=== PATIENT | male | born 1960 | race Caucasian/White ===

== ENCOUNTER → 2018-07-18 | Outpatient (CLI) | payer BC | LOC: RAD 09:19 | DX: M79.644 Pain in right finger(s) (principal) ==

== ENCOUNTER → 2018-10-08 | Outpatient (CLI) | payer BC ==
[~2018-10-08] MED LIST: FLOMAX0.4 MG PO; OMEPRAZOLE40 MG PO; TEGRETOL200 M1 PO
[2018-10-08 10:11] LABS: HEMATOCRIT 45.5 % (42.0-52.0); HEMOGLOBIN 15.6 g/dL (13.5-18.0); MEAN CELL VOLUME 91 fl (78-100); MEAN CORPUSCULAR HEMOGLOBIN 31 pg (27-31); MEAN CORPUSCULAR HGB CONC 34 g/dL (33-37); MEAN PLATELET VOLUME 9.3 fl (7.4-10.4); PLATELET COUNT 108 K/mm3 (130-400); RED BLOOD COUNT 5.02 M/mm3 (4.20-5.60); RED CELL DISTRIBUTION WIDTH 12.1 % (11.5-14.5); WHITE BLOOD COUNT 3.2 K/mm3 (4.8-10.8)
[2018-10-08 10:26] LABS: ALBUMIN 3.9 g/dL (3.5-5.0); POTASSIUM 4.2 mmol/L (3.5-5.1)
[2018-10-08 10:27] LABS: CALCIUM 8.8 mg/dL (8.3-10.5)
[2018-10-08 10:31] LABS: TOTAL BILIRUBIN 0.3 mg/dL (0.2-1.2)
[2018-10-08 10:35] LABS: URINE APPEARANCE CLEAR; URINE BILIRUBIN NEGATIVE (NEGATIVE); URINE BLOOD NEGATIVE (NEGATIVE); URINE COLOR YELLOW; URINE GLUCOSE NEGATIVE (NEGATIVE); URINE KETONE NEGATIVE (NEGATIVE); URINE NITRATE NEGATIVE (NEGATIVE); URINE PROTEIN(semi-quant) NEGATIVE (NEGATIVE); URINE UROBILINOGEN NORMAL (NORMAL)
[2018-10-08 10:36] LABS: URINE LEUKOCYTE ESTERASE NEGATIVE (NEGATIVE); URINE MUCUS PRESENT (NOT PRESENT); URINE WBC 0-1 /hpf (0-3)
[2018-10-08 10:37] LABS: BAND 7 % (0-10); LYMPHOCYTE 33 % (20-51); MONOCYTE 9 % (3-10); NEUTROPHILS 49 % (42-75)
[2018-10-08 11:12] LABS: ERYTHROCYTE SEDIMENTATION RATE 2 mm/hr (0-20)
== END ==
LOC: LAB 09:57
PROVIDERS: Internal Medicine
DX: G43.009 Migraine without aura, not intractable, without status migrainosus (principal); R10.13 Epigastric pain; R11.0 Nausea

== ENCOUNTER → 2018-10-09 | Outpatient (CLI) | payer BC ==
[~2018-10-09] VITALS: Ht 188 cm; Wt 88.6 kg
[2018-10-09 15:30] VITALS: BP 112/70
== END ==
LOC: AMSURD 14:26
DX: W57.XXXA Bitten or stung by nonvenomous insect and other nonvenomous arthropods, initial encounter (principal)
CPT/HCPCS: J0696

== ENCOUNTER → 2018-10-18 | Outpatient (CLI) | payer BC ==
[2018-10-09 15:30] VITALS: BP 112/70
[2018-10-18 17:07] LABS: EOS # 0.2 (0.04-0.40); EOS % 2.8 % (0.0-4.0); HEMATOCRIT 42.9 % (42.0-52.0); HEMOGLOBIN 14.6 g/dL (13.5-18.0); LYMPH# 2.3 (1.50-4.00); MEAN CELL VOLUME 91 fl (78-100); MEAN CORPUSCULAR HEMOGLOBIN 31 pg (27-31); MEAN CORPUSCULAR HGB CONC 34 g/dL (33-37); MEAN PLATELET VOLUME 8.8 fl (7.4-10.4); MONO # 0.6 (0.20-0.80); PLATELET COUNT 186 K/mm3 (130-400); RED BLOOD COUNT 4.71 M/mm3 (4.20-5.60); RED CELL DISTRIBUTION WIDTH 11.9 % (11.5-14.5); WHITE BLOOD COUNT 6.1 K/mm3 (4.8-10.8)
[2018-10-18 17:13] LABS: ALBUMIN 3.7 g/dL (3.5-5.0)
[2018-10-18 17:14] LABS: POTASSIUM 3.9 mmol/L (3.5-5.1)
[2018-10-18 17:15] LABS: CALCIUM 8.5 mg/dL (8.3-10.5)
[2018-10-18 17:16] LABS: TOTAL PROTEIN 5.3 g/dL (6.4-8.3)
[2018-10-18 17:18] LABS: TOTAL BILIRUBIN 0.4 mg/dL (0.2-1.2)
== END ==
LOC: LAB 16:24
PROVIDERS: Nurse Practitioner
DX: R53.81 Other malaise (principal); W57.XXXA Bitten or stung by nonvenomous insect and other nonvenomous arthropods, initial encounter

== ENCOUNTER → 2018-10-25 | Outpatient (CLI) | payer BC ==
[2018-10-09 15:30] VITALS: BP 112/70
== END ==
LOC: RAD 15:15
DX: M51.34 Other intervertebral disc degeneration, thoracic region (principal)

== ENCOUNTER → 2018-12-04 | Outpatient (CLI) | payer BC ==
[2018-10-09 15:30] VITALS: BP 112/70
== END ==
LOC: LAB 13:17
DX: R53.81 Other malaise (principal); W57.XXXA Bitten or stung by nonvenomous insect and other nonvenomous arthropods, initial encounter

== ENCOUNTER → 2019-07-12 | Outpatient (CLI) | payer BC ==
[2018-10-09 15:30] VITALS: BP 112/70
== END ==
LOC: LAB 15:10
DX: R35.1 Nocturia (principal)

== ENCOUNTER → 2019-10-15 | Outpatient (CLI) | payer BC ==
[2018-10-09 15:30] VITALS: BP 112/70
== END ==
LOC: RAD 07:41
DX: M51.34 Other intervertebral disc degeneration, thoracic region (principal); K21.9 Gastro-esophageal reflux disease without esophagitis

== ENCOUNTER → 2020-01-13 | Outpatient (CLI) | payer BC ==
[2018-10-09 15:30] VITALS: BP 112/70
== END ==
LOC: LAB 15:04
DX: Z12.5 Encounter for screening for malignant neoplasm of prostate (principal)

== ENCOUNTER → 2021-05-12 | Outpatient (CLI) | payer BC | LOC: LAB 13:51 | DX: N40.1 Benign prostatic hyperplasia with lower urinary tract symptoms (principal) ==

== ENCOUNTER → 2021-09-07 | Outpatient (CLI) | payer BC ==
[2021-09-07 08:00] LABS: BASO # 0.02 K/mm3 (0.02-0.10); EOS # 0.14 K/mm3 (0.04-0.40); EOS % 3.2 % (0.0-4.0); HEMATOCRIT 44.7 % (42.0-52.0); HEMOGLOBIN 14.7 g/dL (13.5-18.0); LYMPH# 1.53 K/mm3 (1.50-4.00); MEAN CELL VOLUME 97 fl (78-100); MEAN CORPUSCULAR HEMOGLOBIN 32 pg (27-31); MEAN CORPUSCULAR HGB CONC 33 g/dL (33-37); MEAN PLATELET VOLUME 9.3 fl (7.4-10.4); MONO # 0.39 K/mm3 (0.20-0.80); NEU # 2.24 K/mm3 (1.40-6.50); PLATELET COUNT 152 K/mm3 (130-400); RED BLOOD COUNT 4.62 M/mm3 (4.20-5.60); RED CELL DISTRIBUTION WIDTH 11.7 % (11.5-14.5); WHITE BLOOD COUNT 4.3 K/mm3 (4.8-10.8)
[2021-09-07 08:08] LABS: ALBUMIN 4.1 g/dL (3.4-4.8); POTASSIUM 4.1 mmol/L (3.5-5.1)
[2021-09-07 08:09] LABS: CALCIUM 9.4 mg/dL (8.3-10.5)
[2021-09-07 08:12] LABS: TOTAL BILIRUBIN 0.7 mg/dL (0.2-1.2)
== END ==
LOC: LAB 07:35
PROVIDERS: Internal Medicine
DX: Z00.00 Encounter for general adult medical examination without abnormal findings (principal); Z12.5 Encounter for screening for malignant neoplasm of prostate; Z12.11 Encounter for screening for malignant neoplasm of colon

== ENCOUNTER → 2021-12-10 | Outpatient (CLI) | payer BC | LOC: LAB 07:38 | DX: N40.1 Benign prostatic hyperplasia with lower urinary tract symptoms (principal) ==

== ENCOUNTER → 2022-12-20 | Outpatient (CLI) | payer BC | LOC: LAB 07:27 | DX: N40.1 Benign prostatic hyperplasia with lower urinary tract symptoms (principal) ==

== ENCOUNTER → 2023-07-19 | Outpatient (CLI) | payer BC ==
[2023-07-19 09:03] LABS: BASO # 0.01 K/mm3 (0.02-0.10); EOS # 0.07 K/mm3 (0.04-0.40); HEMATOCRIT 44.1 % (42.0-52.0); HEMOGLOBIN 14.7 g/dL (13.5-18.0); LYMPH# 1.16 K/mm3 (1.50-4.00); MEAN CELL VOLUME 96 fl (78-100); MEAN CORPUSCULAR HEMOGLOBIN 32 pg (27-31); MEAN CORPUSCULAR HGB CONC 33 g/dL (33-37); MEAN PLATELET VOLUME 8.8 fl (7.4-10.4); MONO # 0.28 K/mm3 (0.20-0.80); NEU # 2.06 K/mm3 (1.40-6.50); PLATELET COUNT 131 K/mm3 (130-400); RED CELL DISTRIBUTION WIDTH 11.5 % (11.5-14.5); WHITE BLOOD COUNT 3.6 K/mm3 (4.8-10.8)
[2023-07-19 09:16] LABS: ALBUMIN 4.2 g/dL (3.4-4.8)
[2023-07-19 09:17] LABS: CALCIUM 9.3 mg/dL (8.3-10.5)
[2023-07-19 09:18] LABS: TOTAL PROTEIN 6.1 g/dL (6.2-8.1)
[2023-07-19 09:20] LABS: TOTAL BILIRUBIN 0.4 mg/dL (0.2-1.2)
[2023-07-19 09:25] LABS: MAGNESIUM 2.02 mg/dL (1.60-2.60)
[2023-07-19 22:54] LABS: HEPATITIS C VIRUS ANTIBODY Negative (Negative)
[2023-07-19 23:23] LABS: TESTOSTERONE 1144 ng/dL (221-716)
== END ==
LOC: LAB 08:42
PROVIDERS: Internal Medicine
DX: Z00.00 Encounter for general adult medical examination without abnormal findings (principal); Z12.5 Encounter for screening for malignant neoplasm of prostate; Z12.11 Encounter for screening for malignant neoplasm of colon; Z11.59 Encounter for screening for other viral diseases

== ENCOUNTER → 2023-12-22 | Outpatient (CLI) | payer BC | LOC: LAB 09:10 | DX: R89.1 Abnormal level of hormones in specimens from other organs, systems and tissues (principal) ==